=== PATIENT | male | born 1985 | race Caucasian/White ===

== ENCOUNTER 2019-07-31 05:47 | Inpatient (IN) | payer OTHER ==
[~2019-07-31] VITALS: Ht 175.3 cm; Wt 79.1 kg
[2019-07-31 06:00] VITALS: BP 142/79
--- NOTE | 2019-07-31 06:00 | NUR ---
MS/RN NOTES RECEIVED DIRECT ADMIT PATIENT FROM [facility] [place]. PT. IS AWAKE, ALERT AND ORIENTED X4. BREATHING EVEN AND UNLABORED ON ROOM AIR. NO SOB OR RESPIRATORY DISTRESS NOTED AT THIS TIME. PT. COMPLAINING OF ABDOMINAL PAIN 07/09. ORIENTED PT. TO ROOM. PT. WITH RIGHT FOREARM 20 GAUGE IV SALINE LOCK PRESENT, PATENT AND INTACT. BED LOCKED AND IN LOWEST POSITION, SIDE RAILS UP X2, CALL LIGHT WITHIN REACH, WILL CONTINUE TO MONITOR.
--- NOTE | 2019-07-31 06:29 | NUR ---
MS/RN NOTES CALLED [facility] FAST FOOD MANAGER TO NOTIFY HIM OF PATIENT ARRIVAL AND RECEIVE ADMITTING ORDERS. PER FAST FOOD MANAGER SERVICE GEORGE LLANES DID NOT STREET LIGHT REPAIRER AND HE WILL BE PAGED. WILL CONTINUE TO MONITOR.
[2019-07-31 08:00] VITALS: BP 158/104
[2019-07-31] MEDS ORDERED: IV NS 0.9% 1,000 ML BAG IV PRN (08:00)
--- NOTE | 2019-07-31 08:00 | NUR ---
RN OPENING NOTES PT AWAKE AND RESTING IN BED. PER VIGNESH SHONNA ORDER NS @100ML/HR, MORPHINE 2MG Q4H AND ATIVAN 1MG Q6H. PT HAS RIGHT FA #20 INTACT AND PATENT. SAFETY PRECAUTIONS IN PLACE, BED IN LOWEST LOCKED POSITION, X2 SIDE RAILS UP AND CALL LIGHT WITHIN REACH. WILL CONTINUE TO MONITOR.
[2019-07-31] MEDS: MORPHINE SULFATE INJ 2 MG/ML DISP.SYRIN IV PRN ×5 (08:45→23:00)
[2019-07-31] MEDS: IV NS 0.9% 1,000 ML IV SCH ×2 (08:45→19:01)
[2019-07-31] MEDS: LORAZEPAM INJ 2 MG/ML VIAL IV PRN ×3 (09:20→21:55)
[2019-07-31] MEDS ORDERED: LORA-259 PO (09:52)
[2019-07-31] MEDS ORDERED: PROP80CA51 PO (09:52)
[2019-07-31] MEDS ORDERED: MAGNESIUM HYDROXIDE 30 ML UDC PO PRN (11:00)
[2019-07-31] MEDS ORDERED: Z GUARD REMEDY 2 OZ OINT TP PRN (11:00)
[2019-07-31] MEDS ORDERED: MAG HYDROX/AL HYDROX/SIMETH 30 ML UDC PO PRN (11:00)
[2019-07-31] MEDS ORDERED: ONDANSETRON HCL/PF 4 MG/2 ML VIAL IVP PRN (11:00)
[2019-07-31 13:57] LABS: BASOPHILS % (AUTO) 0.2 % (0.0-2.0); EOSINOPHILS % (AUTO) 0.9 % (0.0-6.0); HEMATOCRIT 40 % (39-51); HEMOGLOBIN 13.9 g/dL (13.5-17.5); LYMPHOCYTES # (AUTO) 0.9 /CMM (0.8-4.8); LYMPHOCYTES % (AUTO) 15.2 % (20.0-44.0); MEAN CORPUSCULAR HGB CONC 35 g/dl (31.0-36.0); MEAN CORPUSCULAR VOLUME 94 fL (80-96); MONOCYTES # (AUTO) 0.4 /CMM (0.1-1.30); MONOCYTES % (AUTO) 6.9 % (2.0-12.0); NEUTROPHILS # (AUTO) 4.4 /CMM (1.8-8.9); NEUTROPHILS % (AUTO) 76.8 % (43.0-81.0); PLATELET COUNT (AUTO) 79 /CMM (150-450); RED BLOOD CELL COUNT(AUTO) 4.28 MIL/uL (4.5-6.0); WHITE BLOOD COUNT (AUTO) 5.7 K/uL (4.3-11.0)
[2019-07-31 14:11] LABS: CALCIUM, SERUM 8.4 mg/dL (8.5-10.1); CREATININE 0.6 mg/dL (0.6-1.3); PHOSPHORUS 2.6 mg/dL (2.5-4.9); POTASSIUM 3.6 mmol/L (3.5-5.1)
[2019-07-31 14:30] LABS: MAGNESIUM 1.2 mg/dL (1.8-2.4)
[2019-07-31 15:10] LABS: EOSINOPHILS % (MANUAL) 1 % (0-4); LYMPHOCYTES % (MANUAL) 15 % (16-48); MONOCYTES % (MANUAL) 6 % (0-11.0); NEUTROPHILS % (MANUAL) 78 (42-76)
[2019-07-31 16:00] VITALS: BP 142/99
--- NOTE | 2019-07-31 17:45 | NUR ---
rn notes informed dr romero of patients 1.2 magnesium level. md ordered 2g of iv magnesium. will carry out as ordered.
[2019-07-31] MEDS ORDERED: Magnesium 1GM/D5W 100ML PREMIX PIGGYBACK IV ONE (18:00)
[2019-07-31] MEDS: Magnesium 1GM/D5W 100ML PREMIX 100 ML IV SCH ×2 (18:02→19:01)
--- NOTE | 2019-07-31 18:49 | NUR ---
RN CLOSING NOTES PT AWAKE AND RESTING IN BED. PAIN MANAGED WITH PRN MORPHINE, WITHDRAWAL SYMPTOMS MANAGED WITH ATIVAN. PT HAS RIGHT FA #20 INTACT AND PATENT. SAFETY PRECAUTIONS IN PLACE, BED IN LOWEST LOCKED POSITION, X2 SIDE RAILS UP AND CALL LIGHT WITHIN REACH. WILL ENDORSE TO DEEP FRYER ASSEMBLER NURSE FOR CONTINUITY OF CARE.
[2019-07-31 20:00] VITALS: BP 161/106
--- NOTE | 2019-07-31 20:46 | NUR ---
MS/RN ON INITIAL SHIFT ROUNDING AT 1930, PATIENT WAS IN BED AWAKE, ALERT ORIENTED, PAIN LEVEL 7/10, WILLING TO WAIT UNTIL THE MORPHINE IS DUE AT 2200, NO DISTRESS NOTED, IVF INFUSING, CALL LIGHT IN REACH. WILL MONITOR.
[2019-08-01] VITALS: BP 155/98
--- NOTE | 2019-08-01 00:30 | NUR ---
MS/RN PATIENT IS SLEEPING AT THIS TIME, APPEAR COMFORTABLE, NO SIGNS OF DISTRESS NOTED, CALL LIGHT IN REACH. WILL CONTINUE TO MONITOR.
[2019-08-01] MEDS: MORPHINE SULFATE INJ 2 MG/ML DISP.SYRIN IV PRN ×4 (05:57→20:09)
[2019-08-01] MEDS: IV NS 0.9% 1,000 ML IV SCH ×2 (06:00→17:00)
--- NOTE | 2019-08-01 06:50 | NUR ---
MS/RN PATIENT IS SLEEPING AT THIS TIME, APPEAR COMFORTABLE, NO SIGNS OF DISTRESS NOTED, CALL LIGHT IN REACH. ALL NEEDS ATTENDED AT THIS TIME, WILL CONTINUE TO MONITOR.
[2019-08-01 07:28] LABS: BASOPHILS % (AUTO) 0.2 % (0.0-2.0); EOSINOPHILS % (AUTO) 0.3 % (0.0-6.0); HEMATOCRIT 40 % (39-51); LYMPHOCYTES # (AUTO) 0.8 /CMM (0.8-4.8); LYMPHOCYTES % (AUTO) 10.1 % (20.0-44.0); MEAN CORPUSCULAR HGB CONC 35 g/dl (31.0-36.0); MEAN CORPUSCULAR VOLUME 94 fL (80-96); MONOCYTES # (AUTO) 0.4 /CMM (0.1-1.30); MONOCYTES % (AUTO) 5.7 % (2.0-12.0); NEUTROPHILS # (AUTO) 6.5 /CMM (1.8-8.9); NEUTROPHILS % (AUTO) 83.7 % (43.0-81.0); PLATELET COUNT (AUTO) 74 /CMM (150-450); WHITE BLOOD COUNT (AUTO) 7.7 K/uL (4.3-11.0)
[2019-08-01 07:33] LABS: ALBUMIN 3.3 g/dL (3.4-5.0); BILIRUBIN,DIRECT 0.3 mg/dL (0.0-0.2); BILIRUBIN,TOTAL 1.4 mg/dL (0.2-1.0); CALCIUM, SERUM 8.5 mg/dL (8.5-10.1); CREATININE 0.7 mg/dL (0.6-1.3); MAGNESIUM 1.7 mg/dL (1.8-2.4); PHOSPHORUS 1.7 mg/dL (2.5-4.9); POTASSIUM 3.5 mmol/L (3.5-5.1); TOTAL PROTEIN, SERUM 7.5 g/dL (6.4-8.2)
[2019-08-01 08:00] VITALS: BP_SYST 141; BP_DIAS 104; BP_DIAS 89
[2019-08-01] MEDS ORDERED: Magnesium 1GM/D5W 100ML PREMIX 100 ML IV SCH (08:00)
[2019-08-01] MEDS: PANTOPRAZOLE 40 MG VIAL IV SCH (08:32)
[2019-08-01] MEDS: LORAZEPAM INJ 2 MG/ML VIAL IV PRN ×2 (08:32→16:35)
[2019-08-01 09:11] LABS: EOSINOPHILS % (MANUAL) 2 % (0-4); LYMPHOCYTES % (MANUAL) 7 % (16-48); MONOCYTES % (MANUAL) 5 % (0-11.0); NEUTROPHILS % (MANUAL) 86 (42-76)
[2019-08-01] MEDS ORDERED: K PHOS NEUTRAL 250 MG TABLET PO ONE (11:00)
[2019-08-01] MEDS ORDERED: CLONIDINE HCL 0.1 MG TABLET PO PRN (11:00)
[2019-08-01] MEDS: CHLORDIAZEPOXIDE HCL 25 MG CAPSULE PO SCH ×2 (11:20→17:26)
[2019-08-01 16:00] VITALS: BP 167/108
--- NOTE | 2019-08-01 16:00 | NUR ---
several unsuccessful attempts to start a new IV assess.
--- NOTE | 2019-08-01 19:06 | NUR ---
PT AWAKE A/O X4, ANXIOUS. MOM AT BEDSIDE AT THIS TIME. PAIN MANAGED WITH PRN MORPHINE, WITHDRAWAL SYMPTOMS MANAGED WITH ATIVAN. PT HAS RIGHT FA #20 INTACT AND PATENT. SAFETY PRECAUTIONS IN PLACE, BED IN LOWEST LOCKED POSITION, X2 SIDE RAILS UP AND CALL LIGHT WITHIN REACH. WILL ENDORSE TO PNEUMATIC PRESS HAND NURSE FOR CONTINUITY OF CARE.
--- NOTE | 2019-08-01 19:13 | NUR ---
MS RN RECEIVE PT IN BED AWAKE WATCHING TV A/O X 3, RESPIRATION EVEN AND UNLABORED, NO S/S OF DISTRESS. SAFETY MEASURES IN PLACE. WILL CONT TO MTR
[2019-08-01 20:00] VITALS: BP_SYST 153; BP_DIAS 100; BP_DIAS 104
[2019-08-02] MEDS: MORPHINE SULFATE INJ 2 MG/ML DISP.SYRIN IV PRN ×2 (00:10→06:22)
[2019-08-02] MEDS: IV NS 0.9% 1,000 ML IV SCH ×3 (03:37→23:00)
--- NOTE | 2019-08-02 06:38 | NUR ---
MS RN Asleep and easily awaken no s/s of distress, pain medicated with prn pain meds with relief. needs attended and anticipated. kept clean, dry, comfortable. am care rendered. no fever, chills, nausea vomiting. will endorse next shift.
[2019-08-02 08:00] VITALS: BP 150/90
[2019-08-02 08:12] LABS: BASOPHILS % (AUTO) 0.4 % (0.0-2.0); EOSINOPHILS % (AUTO) 2.3 % (0.0-6.0); HEMATOCRIT 39 % (39-51); HEMOGLOBIN 13.5 g/dL (13.5-17.5); LYMPHOCYTES # (AUTO) 1.2 /CMM (0.8-4.8); LYMPHOCYTES % (AUTO) 17.6 % (20.0-44.0); MEAN CORPUSCULAR HGB CONC 35 g/dl (31.0-36.0); MEAN CORPUSCULAR VOLUME 94 fL (80-96); MONOCYTES # (AUTO) 0.5 /CMM (0.1-1.30); NEUTROPHILS # (AUTO) 4.9 /CMM (1.8-8.9); NEUTROPHILS % (AUTO) 72.7 % (43.0-81.0); PLATELET COUNT (AUTO) 69 /CMM (150-450); RED BLOOD CELL COUNT(AUTO) 4.12 MIL/uL (4.5-6.0); WHITE BLOOD COUNT (AUTO) 6.8 K/uL (4.3-11.0)
[2019-08-02 08:24] LABS: ALBUMIN 3.1 g/dL (3.4-5.0); BILIRUBIN,DIRECT 0.3 mg/dL (0.0-0.2); CALCIUM, SERUM 8.6 mg/dL (8.5-10.1); CREATININE 0.7 mg/dL (0.6-1.3); MAGNESIUM 1.8 mg/dL (1.8-2.4); PHOSPHORUS 2.6 mg/dL (2.5-4.9); POTASSIUM 3.2 mmol/L (3.5-5.1); TOTAL PROTEIN, SERUM 7.5 g/dL (6.4-8.2)
[2019-08-02 08:42] LABS: EOSINOPHILS % (MANUAL) 2 % (0-4); LYMPHOCYTES % (MANUAL) 16 % (16-48); MONOCYTES % (MANUAL) 5 % (0-11.0); NEUTROPHILS % (MANUAL) 77 (42-76)
[2019-08-02] MEDS: PANTOPRAZOLE 40 MG VIAL IV SCH (08:55)
[2019-08-02] MEDS: CHLORDIAZEPOXIDE HCL 25 MG CAPSULE PO SCH ×2 (08:55→16:19)
[2019-08-02] MEDS: POTASSIUM CHLORIDE 20 MEQ TAB.PRT.SR PO SCH ×2 (11:28→11:37)
[2019-08-02] MEDS: HYDROCODONE/APAP 5/325MG 1 EACH TABLET PO PRN (11:31)
[2019-08-02] MEDS: LORAZEPAM INJ 2 MG/ML VIAL IV PRN (14:35)
[2019-08-02 16:00] VITALS: BP 140/86
--- NOTE | 2019-08-02 18:57 | NUR ---
Patient resting in bed with no distress noted. Patient denies any pain. Pt started on soft food and tolerated well . No N/V or pain noted. Patient verbalized that he feels so much better now. All needs attended. Patient had BM x1. IV line intact and patent. Will endorse to next shift for WILFRED
--- NOTE | 2019-08-02 19:00 | NUR ---
MS RN NOTE RECEIVED PT IN STABLE CONDITION A/O X4, CURRENTLY RESTING IN BED. NO SIGNS OF SOB OR DISTRESS, NO C/O PAIN. IV IN RFA IN PLACE, PT REFUSING IVF. ALL CURRENT NEEDS ATTENDED TO. BED LOW, LOCKED, UPPER RAILS UP, AND CALL LIGHT WITHIN REACH. WILL CONT. TO MONITOR.
[2019-08-02 20:00] VITALS: BP 141/89
[2019-08-03] MEDS: HYDROCODONE/APAP 5/325MG 1 EACH TABLET PO PRN (00:59)
--- NOTE | 2019-08-03 00:59 | NUR ---
MS RN NOTE PT REQUESTING NORCO 5-325 MG PO FOR ABD PAIN 05/08. WILL CONT. TO MONITOR.
--- NOTE | 2019-08-03 06:12 | NUR ---
MS RN NOTE PT REMAINS IN STABLE CONDITION A/O X4, CURRENTLY RESTING IN BED. NO SIGNS OF SOB OR DISTRESS, NO C/O PAIN. IV IN RFA IN PLACE, PT REFUSING IVF. ALL CURRENT NEEDS ATTENDED TO. BED LOW, LOCKED, UPPER RAILS UP, AND CALL LIGHT WITHIN REACH. WILL CONT. TO MONITOR AND ENDORSE TO NEXT SHIFT FOR WILFRED.
--- NOTE | 2019-08-03 07:04 | NUR ---
MS RN NOTES PATIENT IN BED ALERT ORIENTED X 4. NO ACUTE DISTRESS NOTED. BREATHING UNLABORED. NO SOB NOTED. IV ACCESS PATENT AND INTACT. NO REDNESS OR SWELLING NOTED. SAFETY MEASURES IN PLACE. CALL LIGHT WITHIN REACH. WILL CONTINUE TO MONITOR ACCORDINGLY.
[2019-08-03 07:48] LABS: BASOPHILS % (AUTO) 0.5 % (0.0-2.0); EOSINOPHILS % (AUTO) 4.5 % (0.0-6.0); HEMATOCRIT 39 % (39-51); HEMOGLOBIN 13.6 g/dL (13.5-17.5); LYMPHOCYTES # (AUTO) 1.3 /CMM (0.8-4.8); LYMPHOCYTES % (AUTO) 23.4 % (20.0-44.0); MEAN CORPUSCULAR HGB CONC 34 g/dl (31.0-36.0); MEAN CORPUSCULAR VOLUME 96 fL (80-96); MONOCYTES # (AUTO) 0.4 /CMM (0.1-1.30); MONOCYTES % (AUTO) 8.4 % (2.0-12.0); NEUTROPHILS # (AUTO) 3.4 /CMM (1.8-8.9); NEUTROPHILS % (AUTO) 63.2 % (43.0-81.0); PLATELET COUNT (AUTO) 88 /CMM (150-450); RED BLOOD CELL COUNT(AUTO) 4.12 MIL/uL (4.5-6.0); WHITE BLOOD COUNT (AUTO) 5.3 K/uL (4.3-11.0)
[2019-08-03 07:54] LABS: CALCIUM, SERUM 9.2 mg/dL (8.5-10.1); CREATININE 0.6 mg/dL (0.6-1.3); PHOSPHORUS 3.6 mg/dL (2.5-4.9); POTASSIUM 3.5 mmol/L (3.5-5.1)
[2019-08-03 08:00] VITALS: BP 146/95
[2019-08-03 08:46] LABS: EOSINOPHILS % (MANUAL) 2 % (0-4); LYMPHOCYTES % (MANUAL) 25 % (16-48); MONOCYTES % (MANUAL) 11 % (0-11.0); NEUTROPHILS % (MANUAL) 62 (42-76)
[2019-08-03] MEDS: CHLORDIAZEPOXIDE HCL 25 MG CAPSULE PO SCH (08:52)
[2019-08-03] MEDS: PANTOPRAZOLE 40 MG VIAL IV SCH (08:53)
[2019-08-03] MEDS: IV NS 0.9% 1,000 ML IV SCH (08:55)
[2019-08-03] MEDS ORDERED: CHLO25CA22 PO (09:01)
== END 2019-08-03 10:10 | disposition home or self-care (01) | DRG 282 ==
LOC: MED 05:47
PROVIDERS: ADMIT Internal Medicine; ATTEND Internal Medicine
DX: K85.90 Acute pancreatitis without necrosis or infection, unspecified (principal); E44.1 Mild protein-calorie malnutrition; F10.239 Alcohol dependence with withdrawal, unspecified; F41.9 Anxiety disorder, unspecified; F32.9 Major depressive disorder, single episode, unspecified; I10 Essential (primary) hypertension; Z68.25 Body mass index [BMI] 25.0-25.9, adult
CPT/HCPCS: 36415; 80048-TC; 80061-TC; 80076-TC; 83690-TC; 83735-TC; 84100-TC; 85025-TC; 87081-TC; C9113; G0378; J2060; J2270; J3475; J7030